=== PATIENT | male | born 1945 | race Caucasian/White ===

== ENCOUNTER 2017-12-17 10:06 | Emergency (ER) | payer MEDICARE ==
[~2017-12-17] VITALS: Ht 170.2 cm; Wt 86.0 kg
[2017-12-17] MEDS ORDERED: ACETAMINOPHEN WITH CODEINE 300/30MG TABLET PO ONE (12:15)
[2017-12-17] MEDS ORDERED: IBUPROFEN 400MG TABLET PO ONE (12:15)
[2017-12-17 12:50] VITALS: BP 198/110
== END 2017-12-17 12:55 | disposition home or self-care (01) ==
LOC: ER 11:05
DX: L98.9 Disorder of the skin and subcutaneous tissue, unspecified (principal); I10 Essential (primary) hypertension; F17.210 Nicotine dependence, cigarettes, uncomplicated
CPT/HCPCS: 99283